=== PATIENT | male | born 1935 | race Two or more races ===

== ENCOUNTER 2019-04-14 22:31 | Emergency (ER) | payer OTHER ==
[~2019-04-14] VITALS: Ht 172.7 cm; Wt 76.0 kg
[2019-04-14 23:41] LABS: BASOPHILS % 0.2 % (0.0-2.0); EOSINOPHILS % 4.1 % (0.0-5.0); HEMOGLOBIN. 11.8 g/dL (14.0-18.0); LYMPHOCYTES % 13.6 % (20.0-50.0); MEAN CORPUSCULAR VOLUME 103.4 fL (80.0-94.0); MEAN PLATELET VOLUME 8.7 fl (7.4-10.4); MONOCYTES % 8.7 % (2.0-8.0); NEUTROPHILS % 73.4 % (40.0-76.0); PLATELET 148 x1000/uL (130-400); RED BLOOD CELL COUNT 3.38 mill/uL (4.7-6.1); RED CELL DISTRIBUTION WIDTH 14.3 % (11.6-14.6)
[2019-04-15 04:00] VITALS: BP 123/65
== END 2019-04-15 04:01 | disposition home or self-care (01) ==
LOC: ER 22:48
DX: R42 Dizziness and giddiness (principal); I12.0 Hypertensive chronic kidney disease with stage 5 chronic kidney disease or end stage renal disease; N18.6 End stage renal disease; Z99.2 Dependence on renal dialysis; Z95.0 Presence of cardiac pacemaker
CPT/HCPCS: 36415; 80048; 99283

== ENCOUNTER 2023-03-31 11:54 | Emergency (ER) | payer OTHER ==
[~2023-03-31] VITALS: Ht 185.4 cm; Wt 85.0 kg
[2023-03-31 12:42] LABS: BASOPHILS % 0.6 % (0.0-2.0); EOSINOPHILS % 3.4 % (0.0-5.0); HEMATOCRIT. 30.5 % (42.0-52.0); HEMOGLOBIN. 10.2 g/dL (14.0-18.0); LYMPHOCYTES % 12.9 % (20.0-50.0); MEAN CORPUSCULAR HEMOGLOBIN 33.9 pg (28.0-32.0); MEAN CORPUSCULAR VOLUME 101.4 fL (80.0-94.0); MEAN PLATELET VOLUME 7.5 fl (7.4-10.4); MONOCYTES % 5.4 % (2.0-8.0); NEUTROPHILS % 77.7 % (40.0-76.0); PLATELET 365 x1000/uL (130-400); RED BLOOD CELL COUNT 3.01 mill/uL (4.7-6.1)
[2023-03-31 12:54] LABS: INR 1.1; PROTHROMBIN TIME 11.8 sec (9.6-11.0)
[2023-03-31 12:55] LABS: CHLORIDE 99 mEq/L (98-107)
[2023-03-31 13:06] LABS: ETHANOL BLOOD < 10 mg/dL (-10)
[2023-03-31] MEDS ORDERED: LIDOCAINE HCL 1% 10 MG/ML 10ML VIAL ONE (13:10)
[2023-03-31 16:03] VITALS: BP 132/70; PULSE 79; RESP 12; TEMP 97.3
== END 2023-03-31 16:23 | disposition short-term general hospital (02) ==
LOC: ER 12:22 → CANBEDREQ 20:34
DX: G93.40 Encephalopathy, unspecified (principal); I10 Essential (primary) hypertension; E11.9 Type 2 diabetes mellitus without complications; Z88.8 Allergy status to other drugs, medicaments and biological substances
CPT/HCPCS: 80053; 80320; 85025; 85610; 84484; 36415; 71045; 36573; 70450; 93005; 99291; J3490; C1725; G0480